=== PATIENT | female | born 1990 | race Caucasian/White ===

== ENCOUNTER 2017-10-25 08:22 | Inpatient (IN) | payer MEDICAID ==
[~2017-10-25] VITALS: Ht 157.5 cm; Wt 57.6 kg
[2017-10-25 08:29] VITALS: BP 154/110
[2017-10-25] MEDS ORDERED: KETOROLAC 30 MG/ML VIAL IVP ONE (08:40)
[2017-10-25] MEDS ORDERED: ONDANSETRON 4 MG/2 ML VIAL IVP ONE ×2 (08:40→10:00)
[2017-10-25 09:06] LABS: HEMATOCRIT 48.4 % (36-48); MEAN CORPUSCULAR HEMOGLOBIN 30 pg (27-31); MEAN CORPUSCULAR HGB CONC 33 g/dL (33-37); MEAN CORPUSCULAR VOLUME 91 fL (80-94); PLATELET COUNT (AUTO) 170 K/uL (140-450); RED BLOOD CELL COUNT(AUTO) 5.32 MIL/uL (4.20-5.40); RED CELL DISTRIBUTION WIDTH 12.1 % (11.6-13.7); WHITE BLOOD COUNT (AUTO) 7.1 K/uL (4.8-10.8)
[2017-10-25] MEDS ORDERED: MORPHINE SULFATE 4 MG/ML SYR IVP ONE ×2 (09:20→11:00)
[2017-10-25 09:58] LABS: ANION GAP 11.5 (8-16); CARBON DIOXIDE 28.5 mmol/L (21-32); CREATININE 0.8 mg/dL (0.6-1.3)
[2017-10-25 10:04] LABS: TOTAL BILIRUBIN 0.4 mg/dL (0.0-1.0)
[2017-10-25 10:07] LABS: EOSINOPHILS % (MANUAL) 1 % (0-4); LYMPHOCYTES % (MANUAL) 30 % (20-46); MONOCYTES % (MANUAL) 9 % (5-12)
[2017-10-25] MEDS: DEXT 5% /NACL 0.9% 1,000 ML IV SCH ×2 (11:20→21:20)
[2017-10-25] MEDS ORDERED: MORPHINE SULFATE 2 MG/ML SYR IVP PRN (11:20)
[2017-10-25] MEDS ORDERED: ACETAMINOPHEN 325 MG TAB PO PRN (11:20)
[2017-10-25 13:12] VITALS: BP 123/72
[2017-10-25 16:00] VITALS: BP 93/58
[2017-10-25] MEDS: ONDANSETRON 4 MG/2 ML VIAL IVP PRN (17:54)
[2017-10-26] VITALS (7 sets, daily range): BP systolic 90–127; BP diastolic 55–88
[2017-10-26] MEDS: DEXT 5% /NACL 0.9% 1,000 ML IV SCH ×2 (07:20→15:44)
[2017-10-26] MEDS ORDERED: BUPIVACAINE-MPF 0.25% 30 ML VIAL INJ ONE (07:41)
[2017-10-26 07:58] LABS: HEMATOCRIT 37.4 % (36-48); HEMOGLOBIN 12.7 g/dL (12.0-16.0); MEAN CORPUSCULAR HEMOGLOBIN 32 pg (27-31); MEAN CORPUSCULAR HGB CONC 34 g/dL (33-37); MEAN CORPUSCULAR VOLUME 93 fL (80-94); PLATELET COUNT (AUTO) 160 K/uL (140-450); RED BLOOD CELL COUNT(AUTO) 4.01 MIL/uL (4.20-5.40); WHITE BLOOD COUNT (AUTO) 5.8 K/uL (4.8-10.8)
[2017-10-26] MEDS ORDERED: fentaNYL 0.05 MG/ML VIAL ONE (08:03)
[2017-10-26] MEDS ORDERED: HYDROmorphone PFS 2 MG/ML SYR ONE ×2 (08:03→10:25)
[2017-10-26] MEDS ORDERED: NEOSTIGMINE 1:1000 10 MG/10 ML VIAL ONE (08:14)
[2017-10-26] MEDS ORDERED: DESFLURANE 240 ML BTL INH ONE (08:14)
[2017-10-26] MEDS ORDERED: KETOROLAC 30 MG/ML VIAL ONE (08:14)
[2017-10-26] MEDS ORDERED: ONDANSETRON 4 MG/2 ML VIAL ONE (08:14)
[2017-10-26] MEDS ORDERED: GLYCOPYRROLATE 0.2 MG/ML VIAL ONE (08:14)
[2017-10-26] MEDS ORDERED: DEXAMETHASONE 4 MG/ML VIAL ONE (08:14)
[2017-10-26] MEDS ORDERED: PROPOFOL 200 MG/20 ML VIAL IV ONE (08:14)
[2017-10-26] MEDS ORDERED: ROCURONIUM 50 MG/5 ML VIAL IV ONE (08:14)
[2017-10-26 08:20] LABS: ALBUMIN 3.3 g/dL (3.4-5.0); ANION GAP 10.3 (8-16); CARBON DIOXIDE 27.8 mmol/L (21-32); CREATININE 0.7 mg/dL (0.6-1.3); POTASSIUM 4.1 mmol/L (3.5-5.1); TOTAL BILIRUBIN 0.6 mg/dL (0.0-1.0)
[2017-10-26] MEDS ORDERED: LEVOFLOXACIN 500 MG/D5W PREMIX 100 ML IV ONE (08:22)
[2017-10-26] MEDS ORDERED: HYDROmorphone PFS 2 MG/ML SYR IVP PRN (08:45)
[2017-10-26] MEDS ORDERED: ONDANSETRON 4 MG/2 ML VIAL IVP PRN (08:45)
[2017-10-26 09:07] LABS: EOSINOPHILS % (MANUAL) 3 % (0-4); LYMPHOCYTES % (MANUAL) 39 % (20-46); MONOCYTES % (MANUAL) 6 % (5-12)
[2017-10-26] MEDS: ONDANSETRON 4 MG/2 ML VIAL IVP PRN (15:44)
[2017-10-26] MEDS: HYDROcodone/APAP 5/325 MG 1 TAB TAB PO PRN ×2 (16:22→23:27)
[2017-10-27] VITALS: BP 100/64
[2017-10-27] MEDS: DEXT 5% /NACL 0.9% 1,000 ML IV SCH (02:14)
[2017-10-27 07:25] LABS: BASOPHILS # (AUTO) 0.4 K/uL (0.00-0.22); EOSINOPHILS % (AUTO) 0.5 % (0.0-4.0); HEMATOCRIT 35.8 % (36-48); HEMOGLOBIN 12.1 g/dL (12.0-16.0); LYMPHOCYTES # (AUTO) 2.2 K/uL (2.5-16.5); MEAN CORPUSCULAR HEMOGLOBIN 31 pg (27-31); MEAN CORPUSCULAR HGB CONC 34 g/dL (33-37); MEAN CORPUSCULAR VOLUME 93 fL (80-94); MONOCYTES # (AUTO) 0.7 K/uL (0.8-1.0); MONOCYTES % (AUTO) 7.8 % (1.7-9.3); NEUTROPHILS # (AUTO) 6.1 K/uL (1.8-7.7); NEUTROPHILS % (AUTO) 63.7 % (42.2-75.2); PLATELET COUNT (AUTO) 164 K/uL (140-450); RED BLOOD CELL COUNT(AUTO) 3.84 MIL/uL (4.20-5.40); RED CELL DISTRIBUTION WIDTH 12.1 % (11.6-13.7); WHITE BLOOD COUNT (AUTO) 9.4 K/uL (4.8-10.8)
[2017-10-27 08:00] VITALS: BP 105/65
[2017-10-27 08:01] LABS: ALBUMIN 3.1 g/dL (3.4-5.0); ANION GAP 10.6 (8-16); CARBON DIOXIDE 27.1 mmol/L (21-32); CREATININE 0.7 mg/dL (0.6-1.3); POTASSIUM 3.7 mmol/L (3.5-5.1); TOTAL BILIRUBIN 0.6 mg/dL (0.0-1.0)
== END 2017-10-27 11:15 | disposition home or self-care (01) | DRG 263 ==
LOC: MED 08:22 → MTU 12:22
PROVIDERS: ADMIT Preventive Medicine Preventive Medicine/Occupational Environmental Medicine; ATTEND Preventive Medicine Preventive Medicine/Occupational Environmental Medicine
PROC: 0FT44ZZ Resection of Gallbladder, Percutaneous Endoscopic Approach (ICD-10-PCS; principal; 2017-10-26 07:30)
DX: K80.10 Calculus of gallbladder with chronic cholecystitis without obstruction (principal); R65.11 Systemic inflammatory response syndrome (SIRS) of non-infectious origin with acute organ dysfunction; E88.09 Other disorders of plasma-protein metabolism, not elsewhere classified; R03.0 Elevated blood-pressure reading, without diagnosis of hypertension; R00.0 Tachycardia, unspecified; R74.0 Nonspecific elevation of levels of transaminase and lactic acid dehydrogenase [LDH]; N80.9 Endometriosis, unspecified; Z88.0 Allergy status to penicillin; Z98.891 History of uterine scar from previous surgery
CPT/HCPCS: 36415; 71010; 76705; 80053; 81025; 82374; 83605; 83690; 85025; 86886; 86900; 86901; 87040; 87081; 88304; 93005; 96374; 96375; 96376; 99285; C1887; J1100; J1170; J1885; J1956; J2270; J2405; J2704; J2710; J3010; J3490; J7030; J7042; J7060